=== PATIENT | male | born 1975 | race Asian ===

== ENCOUNTER 2020-12-23 16:57 | Inpatient (IN) | payer BC ==
[~2020-12-23] VITALS: Ht 165.1 cm; Wt 64.3 kg
--- NOTE | 2020-12-23 17:15 | NUR ---
PT IS A 45M COMPLAINING OF COUGH/FATIGUE/SOB. DENIES FEVER AND OTHER SYMPTOMS. DENIES EXPOSURE TO COVID BUT HE WORKS AT [employer]. PROVIDER AT BEDSIDE FOR EVAL. TALENT ADVISOR, CONTINUOUS SP02, AND CYCLING VITALS IN PLACE. CALL LIGHT WITHIN REACH.
[2020-12-23] MEDS ORDERED: SODIUM CHLORIDE 0.9% 1,000ML IVBOLUS ONE (17:30)
[2020-12-23] MEDS ORDERED: ASPIRIN 81 MG TABLET CHEW PO ONE (17:30)
[2020-12-23] MEDS ORDERED: ASPIRIN 81 MG TABLET CHEW ONE (17:32)
[2020-12-23 18:26] LABS: BASOPHILS % (AUTO) 0 % (0-1); EOSINOPHILS % (AUTO) 1 % (1-7); LYMPHOCYTES % (AUTO) 31 % (22-44); MEAN CORPUSCULAR HEMOGLOBIN 33.3 pg (27.5-34.5); MEAN CORPUSCULAR HGB CONC 33.2 g/dL (33.2-36.2); MEAN PLATELET VOLUME 8.2 fL (7.4-10.4); MONOCYTES % (AUTO) 7 % (2-9); NEUTROPHILS % (AUTO) 61 % (42-75); PLATELET COUNT 262 x10^3/uL (130-400); RED BLOOD COUNT 4.91 x10^6/uL (4.38-5.82); RED CELL DISTRIBUTION WIDTH 12.5 % (9.4-14.8)
[2020-12-23 18:30] LABS: MD NO
--- NOTE | 2020-12-23 18:45 | NUR ---
pt resting comfortably watching tv. no further needs at this time. call light within reach.
--- NOTE | 2020-12-23 18:59 | NUR ---
report to Sophia GARCIA.
[2020-12-23 19:04] LABS: ALBUMIN 3.3 g/dL (3.4-5.0); ANION GAP 8 mmol/L (5-15); CALCIUM 8.7 mg/dL (8.5-10.1); CHLORIDE 110 mmol/L (98-107)
[2020-12-23 19:20] LABS: TROPONIN I 0.177 ng/mL (0.000-0.045)
--- NOTE | 2020-12-23 19:25 | NUR ---
patient resting in bed in NAD. call ramos in reach. on cell phone with registration. MD aware of troponin and ddimer being elevated
[2020-12-23] MEDS ORDERED: OMNIPAQUE 350 MG/ML, 100ML BOTTLE ONE (20:47)
--- NOTE | 2020-12-23 21:05 | NUR ---
Aline AL notified of CTA result
[2020-12-23] MEDS ORDERED: ENOXAPARIN 60 MG/0.6 ML ONE (21:15)
[2020-12-23] MEDS ORDERED: CEFTRIAXONE PMX 1GM/50ML 50 ML ONE (21:15)
[2020-12-23] MEDS ORDERED: ENOXAPARIN 60 MG/0.6 ML SQ ONE (21:30)
[2020-12-23] MEDS ORDERED: CEFTRIAXONE PMX 1GM/50ML 50 ML IV ONE (21:30)
[2020-12-23] MEDS ORDERED: AZITHROMYCIN 500 MG in SODIUM CHLORIDE 0.9% 250 ML IV ONE (21:30)
[2020-12-23] MEDS ORDERED: ENALAPRILAT 1.25 MG/ML, 2ML IV ONE (22:00)
[2020-12-23] MEDS ORDERED: FUROSEMIDE 40 MG/4 ML IVPush ONE (22:00)
--- NOTE | 2020-12-23 22:00 | NUR ---
patient resting in bed in NAD. call ramos in reach. watching TV. safety maintained
[2020-12-23] MEDS ORDERED: ENALAPRILAT 1.25 MG/ML, 1ML ONE (22:14)
[2020-12-23] MEDS ORDERED: OXYcodone IR 5MG TABLET PO PRN (22:30)
[2020-12-23] MEDS ORDERED: ONDANSETRON ODT 4 MG PO PRN (22:30)
[2020-12-23] MEDS ORDERED: POLYETHYLENE GLYCOL 17 GM PACKET PO PRN (22:30)
[2020-12-23] MEDS ORDERED: ACETAMINOPHEN 325 MG TABLET PO PRN (22:30)
[2020-12-23] MEDS ORDERED: ONDANSETRON 2MG/ML, 2ML IVPush PRN (22:30)
[2020-12-23] MEDS ORDERED: BISACODYL 10 MG SUPP PR PRN (22:30)
[2020-12-23] MEDS ORDERED: hydrALAzine 20 MG/ML, 1ML IVPush PRN (22:30)
[2020-12-23] MEDS ORDERED: DOCUSATE 100 MG CAPSULE PO PRN (22:30)
[2020-12-23] MEDS ORDERED: PROMETHAZINE 25 MG/ML, 1ML IM PRN (22:30)
[2020-12-23] MEDS ORDERED: morphine SULFATE 10 MG/ML, 1ML IVPush PRN (22:30)
[2020-12-23] MEDS ORDERED: FUROSEMIDE 40 MG/4 ML ONE (22:33)
--- NOTE | 2020-12-23 22:54 | NUR ---
patient sitting up in bed. in NAD. BP remains high. medications ordered administered. supplemental O2 applied for low O2 saturation at 90% on RA. will recheck BP
[2020-12-23] MEDS ORDERED: ALBUTEROL HFA 90 MCG/SPRAY INH PRN (23:00)
--- NOTE | 2020-12-23 23:00 | NUR ---
report given to manoj GARCIA
--- NOTE | 2020-12-23 23:05 | NUR ---
US at bedside for ECHO
[2020-12-24 00:41] VITALS: BP 133/99
[2020-12-24 05:11] LABS: BASOPHILS % (AUTO) 0 % (0-1); EOSINOPHILS % (AUTO) 1 % (1-7); LYMPHOCYTES % (AUTO) 36 % (22-44); MEAN CORPUSCULAR HEMOGLOBIN 33.2 pg (27.5-34.5); MEAN PLATELET VOLUME 7.8 fL (7.4-10.4); MONOCYTES % (AUTO) 6 % (2-9); NEUTROPHILS % (AUTO) 57 % (42-75); PLATELET COUNT 286 x10^3/uL (130-400); RED BLOOD COUNT 4.87 x10^6/uL (4.38-5.82); RED CELL DISTRIBUTION WIDTH 12.8 % (9.4-14.8)
[2020-12-24 05:23] LABS: ALBUMIN 3.2 g/dL (3.4-5.0); CHLORIDE 112 mmol/L (98-107)
[2020-12-24 05:24] LABS: MD NO
[2020-12-24 05:32] LABS: ALANINE AMINOTRANSFERASE 36 U/L (12-78); ALKALINE PHOSPHATASE 67 U/L (45-117); ANION GAP 10 mmol/L (5-15); BILIRUBIN,TOTAL 1.7 mg/dL (0.2-1.0); CALCIUM 8.5 mg/dL (8.5-10.1); CHOL/HDL RATIO 3.3; CHOLESTEROL, TOTAL 163 mg/dL (140-239); CREATININE 1.41 mg/dL (0.7-1.3); HDL CHOL % 31 % (26-37); HDL CHOLESTEROL (DIRECT) 50 mg/dL (40-60); LDL CHOLESTEROL,CALCULATED 99 mg/dL (54-169); TOTAL PROTEIN 6.8 g/dL (6.4-8.2); TRIGLYCERIDES 68 mg/dL (50-200); TROPONIN I 0.186 ng/mL (0.000-0.045); VLDL CHOLESTEROL 14 mg/dL (0-25)
[2020-12-24 08:20] VITALS: BP 125/95
[2020-12-24] MEDS ORDERED: ACETAMINOPHEN 325 MG TABLET PO PRN (08:30)
[2020-12-24] MEDS: CARVEDILOL 6.25 MG TABLET PO SCH ×2 (08:30→17:52)
[2020-12-24 08:47] VITALS: BP 121/90
[2020-12-24] MEDS ORDERED: APIXABAN 5 MG TABLET PO SCH (09:00)
[2020-12-24] MEDS ORDERED: FUROSEMIDE 20 MG/2 ML IV SCH (09:00)
[2020-12-24] MEDS ORDERED: ENOXAPARIN 60 MG/0.6 ML SQ SCH ×2 (09:30)
[2020-12-24 12:15] VITALS: BP 127/90
[2020-12-24 16:54] VITALS: BP 118/89
[2020-12-24] MEDS ORDERED: FUROSEMIDE 20 MG/2 ML IV ONE (17:00)
[2020-12-24] MEDS: ENOXAPARIN 80 MG/0.8 ML SQ SCH (20:00)
[2020-12-24 20:22] VITALS: BP 108/80
[2020-12-24] MEDS: ATORVASTATIN 40 MG TABLET PO SCH (20:26)
[2020-12-25 01:29] VITALS: BP 111/80
[2020-12-25] MEDS: CARVEDILOL 6.25 MG TABLET PO SCH ×2 (05:39→18:26)
[2020-12-25 05:41] LABS: ANION GAP 10 mmol/L (5-15); CALCIUM 9.1 mg/dL (8.5-10.1); CHLORIDE 113 mmol/L (98-107); CREATININE 1.25 mg/dL (0.7-1.3)
[2020-12-25] MEDS: FUROSEMIDE 20 MG/2 ML IV SCH ×2 (07:49→07:50)
[2020-12-25] MEDS: ENOXAPARIN 80 MG/0.8 ML SQ SCH ×2 (07:49→20:15)
[2020-12-25 08:00] VITALS: BP 112/83
[2020-12-25] MEDS ORDERED: LIDOCAINE 1%, 10ML ONE (08:09)
[2020-12-25 08:13] VITALS: BP 125/89
[2020-12-25] MEDS: LOSARTAN 25MG TABLET PO SCH (09:09)
[2020-12-25 12:40] VITALS: BP 104/74
[2020-12-25 19:43] VITALS: BP 107/82
[2020-12-25] MEDS: ATORVASTATIN 40 MG TABLET PO SCH (20:14)
[2020-12-26 01:28] VITALS: BP 119/98
[2020-12-26] MEDS: CARVEDILOL 6.25 MG TABLET PO SCH ×2 (06:00→18:40)
[2020-12-26 07:35] VITALS: BP 123/90
[2020-12-26] MEDS ORDERED: REGADENOSON 0.4 MG/5 ML SYRINGE ONE (08:06)
[2020-12-26] MEDS: LOSARTAN 25MG TABLET PO SCH (10:18)
[2020-12-26] MEDS: ENOXAPARIN 80 MG/0.8 ML SQ SCH ×2 (10:18→21:00)
[2020-12-26] MEDS: SPIRONOLACTONE 25 MG TABLET PO SCH (10:18)
[2020-12-26] MEDS: FUROSEMIDE 20 MG/2 ML IV SCH (10:18)
[2020-12-26 12:51] VITALS: BP 106/76
[2020-12-26 19:58] VITALS: BP 113/84
[2020-12-26] MEDS: ATORVASTATIN 40 MG TABLET PO SCH (20:59)
[2020-12-27 02:22] VITALS: BP 118/89
[2020-12-27] MEDS: CARVEDILOL 6.25 MG TABLET PO SCH (05:22)
[2020-12-27 07:20] VITALS: BP 115/84
[2020-12-27] MEDS: FUROSEMIDE 20 MG/2 ML IV SCH (08:21)
[2020-12-27] MEDS: SPIRONOLACTONE 25 MG TABLET PO SCH (08:21)
[2020-12-27] MEDS: LOSARTAN 25MG TABLET PO SCH (08:22)
[2020-12-27] MEDS: ENOXAPARIN 80 MG/0.8 ML SQ SCH (08:22)
[2020-12-27] MEDS ORDERED: SPIR25TA PO (10:29)
[2020-12-27] MEDS ORDERED: APIX5TAB4 PO (10:29)
[2020-12-27] MEDS ORDERED: CARV6.2512 PO (10:29)
[2020-12-27] MEDS ORDERED: ALBU18HF INH (10:29)
[2020-12-27] MEDS ORDERED: FURO40TA6 PO (10:29)
[2020-12-27] MEDS ORDERED: APIX5TAB PO (10:29)
[2020-12-27] MEDS ORDERED: LOSA25TA25 PO (10:29)
[2020-12-28] MEDS ORDERED: FUROSEMIDE 40 MG TABLET PO SCH (09:00)
== END 2020-12-27 11:45 | disposition home or self-care (01) | DRG 280 ==
LOC: ED 19:22 → EDIP 21:44 → 5SO 12-24 00:27 → DCLOUNGE 12-27 11:19
PROVIDERS: ADMIT Internal Medicine; ATTEND Internal Medicine
PROC: B244ZZZ Ultrasonography of Right Heart (ICD-10-PCS; principal; 2020-12-24)
PROC: 0W9B3ZZ Drainage of Left Pleural Cavity, Percutaneous Approach (ICD-10-PCS; 2020-12-25)
PROC: BB4BZZZ Ultrasonography of Pleura (ICD-10-PCS; 2020-12-25)
DX: I11.0 Hypertensive heart disease with heart failure (principal); I50.21 Acute systolic (congestive) heart failure; I21.A1 Myocardial infarction type 2; I26.99 Other pulmonary embolism without acute cor pulmonale; N17.0 Acute kidney failure with tubular necrosis; J12.9 Viral pneumonia, unspecified; Z20.822 Contact with and (suspected) exposure to COVID-19; I42.9 Cardiomyopathy, unspecified; F10.10 Alcohol abuse, uncomplicated; F12.90 Cannabis use, unspecified, uncomplicated; F17.210 Nicotine dependence, cigarettes, uncomplicated; I77.819 Aortic ectasia, unspecified site; Z79.899 Other long term (current) drug therapy; Z79.891 Long term (current) use of opiate analgesic; Z79.01 Long term (current) use of anticoagulants
CPT/HCPCS: 32555; 36415; 36600; 82945; 83986; 89051; 93017; 96361; 96374; 96375; 99291; J3490; 71045; 71275; 78452; 80048; 80053; 80061; 82040; 82803; 83036; 83735; 83880; 84157; 84443; 84484; 85025; 85379; 87070; 87205; 87635; 88112; 88305; 88341; 88342; 93005; 93306; 93970; G0378; J1650; J1940; J2785; Q9967; A9502; J7030

== ENCOUNTER → 2021-04-06 | Outpatient (CLI) | payer BC ==
[~2021-04-06] MED LIST: ALBU18HF INH; APIX5TAB PO; APIX5TAB4 PO; CARV6.2512 PO; FURO40TA6 PO; LOSA25TA25 PO; SPIR25TA PO
== END | disposition home or self-care (01) ==
LOC: CVU 14:03
PROVIDERS: ATTEND Internal Medicine Cardiovascular Disease
DX: I08.8 Other rheumatic multiple valve diseases (principal); I42.9 Cardiomyopathy, unspecified
CPT/HCPCS: 93306